=== PATIENT | male | born 1930 | race Caucasian/White ===

== ENCOUNTER 2018-09-22 22:19 | Inpatient (IN) | END 2018-09-24 14:00 | disposition short-term general hospital (02) | DRG 871 ==

== ENCOUNTER 2019-07-04 18:57 | Emergency (ER) | payer OTHER ==
[~2019-07-04] VITALS: Ht 157.5 cm; Wt 60.0 kg
[~2019-07-04 18:57] MED LIST: ATOR-2 PO; CITA20TA8 PO; CLOP75TA19 PO; FENT1PAT54 TD; HYDR-4011 PO; LACT20SO2 PO; LAMO25TA8 PO; LATA2.5D2 BOTH EYES; PANT40TA3 PO
[2019-07-04 19:01] VITALS: Ht 157.5 cm; Wt 60.0 kg
[2019-07-04] MEDS ORDERED: ASPIRIN 325 MG TAB PO STA (19:01)
--- NOTE | 2019-07-04 19:14 | ERD ---
ER Documentation Chief Complaint Chief Complaint CP X TODAY. HPI This is an 88-year-old male presents to the emergency department complaining of chest pain that occurred 2 hours prior to arrival. 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 The patient is on Plavix. He has had no fevers or shaking no chills. He denies any shortness of breath at rest or exertion. Indicates the chest pain was 5 out of 10 in intensity. He took nitroglycerin but he stated the chest pain was a dull achy sensation that was exacerbated when he moved his left arm. This completely resolved his chest pain as he states is now 0 out of 10. He stated there was no pressure-like sensation which was the chest pain he felt when he previously had a myocardial infarction. He had no associated symptoms of nausea vomiting or diaphoresis. No swelling of his lower extremities. No recent travel or hospitalizations. ROS All systems reviewed and are negative except as per history of present illness. Medications Home Meds Reported Medications Hydrocodone/Acetaminophen ([place] 5-325 Tablet) 1 Each Tablet, 1 EACH PO, TAB 09/22/18 Lamotrigine* (Lamotrigine*) 25 Mg Tablet, 25 MG PO DAILY, TAB 09/22/18 Latanoprost (Latanoprost) 2.5 Ml Drops, 1 DROP BOTH EYES QHS, #1 BOTTLE 06/16/16 Clopidogrel Bisulfate* (Clopidogrel Bisulfate*) 75 Mg Tablet, 75 MG PO DAILY, #30 TAB 06/16/16 Fentanyl Patch* (Fentanyl Patch*) 12 Mcg/Hr Transdermal Patch, 1 PATCH TD Q72H, PATCH 06/16/16 Lactulose* (Lactulose*) 20 Gm/30 Ml Solution, 20 GM PO BID, ML 06/16/16 Citalopram Hydrobromide* (Citalopram Hydrobromide*) 20 Mg Tablet, 20 MG PO DAILY, #30 TAB 06/16/16 Atorvastatin* (Atorvastatin*) 80 Mg Tablet, 80 MG PO QHS, #30 TAB 06/16/16 Pantoprazole* (Protonix*) 40 Mg Tablet.dr, 40 MG PO DAILY, TAB 06/16/16 Allergies Allergies: Coded Allergies: vancomycin (Unverified Allergy, Mild, RASH/HIVES, 09/22/18) PMhx/Soc History of Surgery: Yes (CARDIAC BYPASS, CHOLECYSTECTOMY 2013) Anesthesia Reaction: No Hx Neurological Disorder: Yes (NEUROPATHY ) Hx Respiratory Disorders: No Hx Cardiac Disorders: Yes (BRADYCARDIA, HYPOTENSION) Hx Psychiatric Problems: No Hx Miscellaneous Medical Probl: No Hx Alcohol Use: No Hx Substance Use: No Hx Tobacco Use: No Smoking Status: Unknown if ever smoked Physical Exam Vitals Vital Signs Date Temp Pulse Resp B/P (MAP) Pulse Ox O2 O2 Flow FiO2 Time Delivery Rate 07/04/19 98.2 55 16 128/68 95 Room Air 19:50 (88) 07/04/19 98.2 51 16 112/66 95 Room Air 19:01 (81) 07/04/19 98.2 51 16 112/66 95 19:01 (81) Physical Exam Constitutional:Well-developed. Well-nourished. HEENT:Normocephalic. Atraumatic.Pupils were equal round reactive to light. Moist mucous membranes.No tonsillar exudates. Neck: No nuchal rigidity. No lymphadenopathy. No posterior cervical spine te nderness or step-offs. Respiratory: Not using accessory muscles of respiration.Lungs were clear to a uscultation bilaterally. No rhonchi. No rales. No wheezing. Cardiovascular: Regular rate regular rhythm.No murmurs. No rubs were appreciated.S1, S2 normal. Distal pulses are palpable 2+ bilaterally. GI: Abdomen was soft. Nontender. Non Distended. No pulsatile abdominal masses or bruits. No rebound. No guarding. Bowel sounds were present and normal. Muscle skeletal: Full range of motion of both the upper and lower extremities bilaterally.Normal muscle tone.No assymetrical calf tenderness or swelling. Skin: No petechia, no purpura. No lesions on the palms or the soles of the feet. No maculopapular rash. NEURO: Patient was alert, awake, orientated x3.No facial droop. Gait observed and normal with no ataxia.Speech had regular rate and rhythm. No focal neurological deficits. Result Diagram: 07/04/19191607/04/191916 Results 24 hrs Laboratory Tests Test 07/04/19 19:17 White Blood Count 9.0 10^3/ul Red Blood Count 4.59 10^6/ul Hemoglobin 14.6 g/dl Hematocrit 45.5 % Mean Corpuscular Volume 99.1 fl Mean Corpuscular Hemoglobin 31.8 pg Mean Corpuscular Hemoglobin Concent 32.1 g/dl Red Cell Distribution Width 12.2 % Platelet Count 165 10^3/UL Mean Platelet Volume 9.1 fl Immature Granulocytes % 0.300 % Neutrophils % 66.2 % Lymphocytes % 22.8 % Monocytes % 9.2 % Eosinophils % 1.1 % Basophils % 0.4 % Nucleated Red Blood Cells % 0.0 /100WBC Immature Granulocytes # 0.030 10^3/ul Neutrophils # 6.0 10^3/ul Lymphocytes # 2.1 10^3/ul Monocytes # 0.8 10^3/ul Eosinophils # 0.1 10^3/ul Basophils # 0.0 10^3/ul Nucleated Red Blood Cells # 0.0 10^3/ul Prothrombin Time 13.2 Sec Prothrombin Time Ratio 1.0 INR International Normalized Ratio 0.99 Activated Partial Thromboplast Time 27.7 Sec Sodium Level 138 mmol/L Potassium Level 4.2 mmol/L Chloride Level 101 mmol/L Carbon Dioxide Level 29 mmol/L Anion Gap 8 Blood Urea Nitrogen 21 mg/dl Creatinine 0.91 mg/dl Est Glomerular Filtrat Rate mL/min mL/min Glucose Level 111 mg/dl Calcium Level 9.6 mg/dl Total Bilirubin 0.8 mg/dl Direct Bilirubin 0.00 mg/dl Indirect Bilirubin 0.8 mg/dl Aspartate Amino Transf (AST/SGOT) 27 IU/L Alanine Aminotransferase (ALT/SGPT) 32 IU/L Alkaline Phosphatase 96 IU/L Creatine Kinase 50 IU/L Creatine Kinase Index 4.3 Creatinine Kinase MB (Mass) 2.14 ng/ml Troponin I 0.023 ng/ml B-Type Natriuretic Peptide 531 PG/ML Total Protein 7.2 g/dl Albumin 4.0 g/dl Globulin 3.20 g/dl Albumin/Globulin Ratio 1.25 Current Medications Medications Dose Sig/Doug Start Time Status Last (Trade) Ordered Route PRN Stop Time Admin Dose Reason Admin Aspirin 325 mg ONCE STAT 07/04/19 DC 07/04/19 (Aspirin) PO 19:01 19:10 07/04/19 19:02 1 tab Q5M UP TO 3 07/04/19 Nitroglycerin DOSES PRN 19:30 SL .CHEST (Nitroglyceri PAIN n (Sl Tab) 0.4 Mg) Procedures/MDM The patient presented to the emergency department with chest pain. My clinical evaluation and workup was to distinguish minor causes of chest pain from acute life threatening conditions such as myocardial infarction, pulmonary embolism, aortic dissection, esophageal rupture, cardiac tamponade. The patient was placed on a bus driver/monitor and continuous pulse oximetry. IV access established by nursing staff. Patient was given aspirin. 12 Lead EKG tracing ordered and reviewed by myself showed: Sinus bradycardia 55 bpm and no arrhythmia. SC interval normal. QRS duration widened at 166 ms with an RSR prime pattern in V1 V2 consistent with a right bundle branch block No ST segment elevation No ST segment depression. No changes consistent with acute ischemia. The patient had no leukocytosis. No severe electrolyte abnormalities. The patient had no elevation of his troponin. I obtained a repeat EKG that showed no acute changes. The patient still was sinus bradycardia cardiac with a right bundle branch block. The patient remained chest pain-free in the emergency department and therefore did not require any further nitroglycerin. I had a lengthy discussion with the patient about being transferred back to [place] for admission for serial twelve-lead EKG tracings and cardiac set of enzymes as the patient receives all of his care at [place]. The patient stated however that he did not want to be admitted to the hospital. The patient stated he is very familiar with his symptoms as he has been dealing with cardiac related issues for over 20 years. He stated this pain felt very different and he also felt it was more reproducible than his previous episodes of cardiac ischemia. 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 The patient was discharged home in fair condition. They were instructed to return to the emergency department at any time if there was any worsening of their condition. The patient stated they would follow up with their PCP in the next 24-48 hours to initiate a suitable medication regimen under the care of their PCP as well as to allow their PCP to monitor any drug reactions. The patient was discharged home with prescriptions after they gave informed consent to the new medication. They were also fully informed by myself on the adverse effects and adverse drug interactions in order to provide adequate safeguards to prevent possible adverse reactions to medications. Departure Diagnosis: Primary Impression: Chest pain Chest pain type: unspecified Qualified Codes: R07.9 - Chest pain, unspecified Condition: Fair RAFAEL VIRGEN MD Jul 04, 2019 19:14
[2019-07-04] MEDS ORDERED: NITROGLYCERIN (SL) 0.4 MG TAB SL PRN (19:30)
[2019-07-04 20:42] VITALS: BP 129/70; PULSE 52; RESP 16
== END 2019-07-04 20:42 | disposition home or self-care (01) ==
LOC: E/R 18:57
DX: R07.9 Chest pain, unspecified (principal); Z79.02 Long term (current) use of antithrombotics/antiplatelets
CPT/HCPCS: 71045; 80053; 82550; 82553; 83880; 84484; 85025; 85610; 85730; 93005